=== PATIENT | female | born 1965 | race Caucasian/White ===

== ENCOUNTER 2018-06-07 07:05 | Inpatient (IN) ==
[2018-06-07] MEDS ORDERED: *HR* Midazolam HCl 2 MG/2 ML VIAL ONE ×2 (07:11→11:25)
[2018-06-07] MEDS ORDERED: *HR* Propofol 200 MG/20 ML VIAL IVP ONE (07:11)
[2018-06-07] MEDS ORDERED: *HR* FentaNYL (PF) 100 MCG/2 ML VIAL ONE ×2 (07:11→09:20)
[2018-06-07] MEDS ORDERED: cefOXitin 2,000 MG in Water for inj. (sterile) 20 ML 20 ML IVP ONE (07:33)
--- NOTE | 2018-06-07 07:42 | Anesthesia Evaluation PreOp ---
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 HX Other Medical History: GERD, Other (depression, panic attacks) Anesthesia History: No Prior Anesthetic Complications, Past Anesthesia Alcohol Use: none Drug use: none Medications and Allergies Acyclovir [Zovirax] 800 mg PO 5XD #25 tablet 12/11/17 [Rx] Atenolol [Tenormin] 50 mg PO DAILY 12/11/17 [History] HydrOXYzine 0.125 mg SL PRN PRN 12/11/17 [History] Hyoscyamine 0.375 mg PO DAILY 12/11/17 [History] Naratriptan HCl [Amerge] 2.5 mg PO DAILY 12/11/17 [History] Omeprazole 40 mg PO DAILY 12/11/17 [History] Venlafaxine HCl [Venlafaxine HCl ER] 150 mg PO DAILY 12/11/17 [History] buPROPion HCl [Bupropion HCl ER] 400 mg PO DAILY 12/11/17 [History] predniSONE [PredniSONE] See Taper PO DAILY #18 tablet 12/11/17 [Rx] Albuterol Sulfate [Proair Hfa] 1 puff IH PRN PRN 06/07/18 [History] Calcium Carbonate/Vitamin D3 [Calcium 500 mg Chewable Tablet] 1 each PO BID [History] Multivit-Min/Iron Fum/Folic AC [Tobpt-Sddjcyl-Jzoagvxe Tablet] 1 each PO DAILY 06/07/18 [History] Psyllium Husk [Fiber] 625 gm PO DAILY 06/07/18 [History] 3 Allergy/AdvReac Type Severity Reaction Status Date / Time atropine [From ] Allergy Hives Verified 06/07/18 07:45 Hyoscyamine [From ] Allergy Hives Verified 06/07/18 07:45 phenobarbital [From ] Allergy Hives Verified 06/07/18 07:45 scopolamine [From ] Allergy Hives Verified 06/07/18 07:45 - Meds/Allergy Pre-op Review Medications Reviewed: Yes Allergies Reviewed: Yes Beta Blockers on Current Med List: Yes If Beta Blockers taken, Date/Time (Last Dose taken): 06/07/2018 at 0600 Anesthesia Results - Labs Laboratory Tests 05/21/18 06/01/18 06/01/18 15:57 11:51 11:51 WBC 4.6 Hgb 12.7 Hct 37.5 Plt Count 281 PT 11.6 INR 1.0 APTT 34.4 Sodium 141 Potassium 4.1 BUN 17 Creatinine 1.00 Anesthesia Exam O2 Sat Height 1.63 m Height 1.63 m Height 1.63 m Weight 66.224 kg Weight 66.224 kg Weight 66.224 kg O2 Sat by Pulse Oximetry 92 Vital Signs Temp Pulse Resp BP Pulse Ox 98.5 F 78 18 123/86 92 06/07/18 07:49 06/07/18 07:49 06/07/18 07:49 06/07/18 07:49 06/07/18 07:49 Height: 5'4'' Weight: 146 lbs NPO (# of Hours): 8 Pain Scale: 0 Pain Scale Used: Numeric (1 - 10) - HEENT Pupil (Motor): EOMI Mallampati: II Teeth: Normal Oral Opening: Greater than 3 - 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
[2018-06-07] MEDS ORDERED: Ringers Solution, Lactated 1,000 ML IVC SCH (07:45)
--- NOTE | 2018-06-07 08:22 | History & Physical Report ---
Date of Encounter: 06/07/18 Time of Encounter: 08:21 24 Hour HP Update - Instructions Instructions: If the History and Physical is less than 30 days old and was completed prior to A.M. admission and or procedure and has NOT been updated on calendar day of procedure please complete this update prior to performing procedure. - Update Patient reports changes in Medical Condition: No Changes in examination, assessment, or condition: No Changes in Medication: No Preop tests/diagnostics Reviewed: Yes Surgery Remains Indicated: Yes Consent for Planned Operative Procedure(s) Verified: Yes - Pre-Operative Checklist Preoperative Checklist Indicated: Yes Prophylactic Antibiotic Ordered: Yes Home Medications Include Beta Aggie: No
[2018-06-07] MEDS ORDERED: EPHEDrine 50 MG/ML VIAL ONE (09:49)
[2018-06-07] MEDS ORDERED: *HR* PHENYLEPHRINE 1,000 MCG/10 ML SYRINGE IVP ONE (10:14)
[2018-06-07] MEDS ORDERED: *HR* HYDROmorphone (PF) 1 MG/ML SYRINGE ONE ×2 (10:29→11:24)
[2018-06-07] MEDS ORDERED: Acetaminophen IV 1,000 MG/100 ML INFUS..BTL ONE (10:30)
[2018-06-07] MEDS ORDERED: Ketorolac 30 MG/ML VIAL ONE (10:51)
[2018-06-07] MEDS ORDERED: *HR* HYDROmorphone (PF) 1 MG/ML SYRINGE IVP PRN (10:56)
[2018-06-07] MEDS ORDERED: *HR* Promethazine 25 MG/ML VIAL IVP PRN (10:56)
[2018-06-07] MEDS ORDERED: *HR* OxyCODONE Immed Rel 5 MG TABLET PO PRN (10:56)
[2018-06-07] MEDS ORDERED: *HR* Rocuronium Bromide 50 MG/5 ML VIAL ONE (11:02)
[2018-06-07] MEDS ORDERED: Neostigmine Methylsulfate 3 MG/3 ML SYRINGE ONE (11:02)
[2018-06-07] MEDS ORDERED: Lidocaine -MPF 2% 2 ML VIAL ONE (11:02)
[2018-06-07] MEDS ORDERED: Dexamethasone 4 MG/ML VIAL ONE (11:02)
[2018-06-07] MEDS ORDERED: Ondansetron 4 MG/2 ML VIAL ONE (11:02)
--- NOTE | 2018-06-07 11:16 | Operative Note ---
Date of procedure: 06/07/18 Pre-op diagnosis: Colon mass Post-op diagnosis: same Procedure: Robotic sigmoid resection with 33 mm EEA stapling Anesthesia: RENETTA Surgeon: Adam Randall Was there an behavioral health assistant present: Yes Stamp Redemption Clerk: Silvia Breen Estimated blood loss (cc): 5 Specimen: Sigmoid colon Condition: stable Disposition: same day Procedure in Detail: After informed consent, patient taken operating room placed supine position. After adequate sedation anesthesia patient was placed in a lithotomy position. After proper timeout a 12 mm cannula site was placed right superior to the umbilicus. Pneumoperitoneum was greater. A 13 mm cannula was placed in right lower quadrant. 5 mm camera was placed in the right upper quadrant. An 8 mm cannula was placed in subxiphoid region followed by another 8 mm in the left lower quadrant. Patient was placed in a headdown position. The robot was docked over the patient's left hip. Small bowel swept out of the pelvis. Rectosigmoid colon was then grasped and retracted cephalad. The peritoneum was then scored level of the sacral promontory. The left ureter was identified and kept on harm's way. The inferior mesenteric artery was then taken with a vessel sealer. The lateral rectosigmoid stalks were taken down the vessel sealer. The dissection was carried out down to approximate 4 cm above the pelvic floor. Rectosigmoid colon was dissected free from the retro-pubic tubercle region. Once it was freed a 45 mm robotic Endo staplers fired across the rectum. Once it was retracted and area was demarcated on the sigmoid colon for transection. Indocyanine green was infused and we had excellent perfusion. The splenic flexure was also taken down and mobilized. This mobilization allowed for less tension on the anastomosis. A counterincision was made in the suprapubic region. Dissection carried down the anterior rectus sheath. The rectus muscles were then divided in the midline with Elvira clamp. Once they were split the rectosigmoid colon was delivered. Lilo bowel clamps are used to place across the colon proximal and distal and transected. Allis clamps are placed on the bowel and then a pursestring suture device placed on the colon. 3-0 Prolene suture was passed. A pursestring sutures and created and a 33 mm EEA anvil was placed. Suture was tied and secured. Colon was then placed back in the pelvis. The stapler was passed through the anal canal and to the rectal stump and then the spear was placed through the staple line. The anvil was then connected secured and fired. There were 2 excellent donuts. There were several 2-0 silk sutures used to buttress the staple line. A leak test revealed no leak. At that point the procedure was terminated. All incisions are closed with 0 Vicryl suture and 4-0 Vicryl suture. Marcaine was inserted in the Pfannenstiel incision. She tolerated the procedure well.
--- NOTE | 2018-06-07 12:11 | Anesthesia Evaluation Post Op ---
Date of Encounter: 06/07/18 Time of Encounter: 12:09 - Vital Signs Vital Signs: Vital Signs/O2 Sat, Most Current Temp Pulse Resp BP Pulse Ox 98.2 F 87 18 103/69 99 06/07/18 12:08 06/07/18 12:08 06/07/18 12:08 06/07/18 12:08 06/07/18 12:08 - Lungs Lungs: Clear Ascult./Percussion - Airway Airway: Non-obstructed - Cardiovascular Regular Rate - Mental Status Mental Status: Asleep with brisk response to light stimulation - Pain Pain Scale: 2 Pain Scale used: Numeric (1 - 10) - Nausea Vomiting Nausea Vomiting: Not Present - Hydration Hydration: NPO, Figueredo catheter - Discharge PostOp Status: Transfer Patient to floor
[2018-06-07] MEDS ORDERED: Naloxone 0.4 MG/ML INJ IVP PRN (13:18)
[2018-06-07] MEDS ORDERED: Ondansetron 4 MG/2 ML VIAL IVP PRN (13:18)
[2018-06-07] MEDS ORDERED: ACYCLOVIR 800 MG PO SCH (13:18)
[2018-06-07] MEDS ORDERED: OXYCODONE Oral CONC 10 MG/0.5 ML ORAL.SYG SL PRN (13:18)
[2018-06-07] MEDS: Ketorolac 15 MG/ML VIAL IVP SCH ×2 (16:29→16:31)
[2018-06-08] MEDS: Ketorolac 15 MG/ML VIAL IVP SCH ×4 (00:23→17:14)
[2018-06-08 03:35] LABS: Basophils % 0.1 %; Hematocrit 38.5 % (35.3-44.9); Immature Granulocytes % 0.5 % (0-4); Lymphocytes # 0.7 K/mcL (0.6-4.6); Lymphocytes % 6.5 %; Mean Corpuscular HGB Conc 33.8 g/dL (31.6-35.5); Mean Corpuscular Hemoglobin 30.9 pg (28.0-33.3); Mean Corpuscular Volume 91.4 fL (83.0-100.0); Mean Platelet Volume 9.5 fL (9.4-12.4); Monocytes # 0.6 K/mcL (0.0-1.3); Monocytes % 5.8 %; Platelet Count 307 K/mcL (140-400); Red Blood Count 4.21 M/mcL (3.82-4.97); Red Cell Distribution Width 13.7 % (11.5-14.5); Segmented Neutrophils % 87.1 %
[2018-06-08 06:11] LABS: BUN/Creatinine Ratio 23 (6-26); Blood Urea Nitrogen 21 mg/dL (6-20); Calcium 8.5 mg/dL (8.6-10.3); Carbon Dioxide 15 mEq/L (23-29); Chloride 115 mEq/L (98-107); Glucose 124 mg/dL (70-105); Osmolality,Calculated 290 (280-300); Potassium 5.6 mEq/L (3.5-5.1); Sodium 138 mEq/L (136-145); eGFR For Non-African Americans > 60 (> 60)
--- NOTE | 2018-06-08 10:03 | General Surgery Progress Note ---
Date of Encounter: 06/08/18 Time of Encounter: 10:01 - Assessment and Plan (1) Colonic mass Current Visit: Yes Status: Acute POD #1 robotic sigmoid resection with Dr. Randall 06/07/2018 Patient doing well post-surgically, mild-moderate pain. Tolerating diet Plan: Continue supportive care and discomfort management full liquid diet, advance as tolerated ambulate TID with assistance Incentive spirometry 10 times per hour while awake (2) DVT prophylaxis Current Visit: Yes Status: Acute EPCDs Ambulation TID Subjective Patient reports: no new complaints, tolerating liquids well, voiding w/o difficulty, no flatus, no bowel movement, afebrile Narrative: Patient was seen and evaluated this morning at the bedside. She is in good spirits. Complains of some abdominal pain, that is moderate in severity. She has not asked for pain medications yet, and I informed her that they are available if she needs. Reports she did not eat much for breakfast because she found the clear liquid foods unappetizing. Has drank some juice and water. Denies nausea or vomiting. Denies passing flatus or bowel movement. Objective Vital Signs - Last 8 Hours Temp Pulse Resp BP Pulse Ox 06/08/18 08:10 98.3 F 78 16 116/63 93 06/08/18 05:46 98.5 F 70 18 131/82 95 Intake and Output 06/07/18 06/08/18 06/08/18 23:59 07:59 15:59 Intake Total 480 / 480 Output Total 0 / 0 Balance 480 / 480 0 / 0 Intake: Oral 480 / 480 Output: Urine 0 / 0 - General physical appearance no distress, moderate pain - Eyes PERRL - ENT atraumatic, normocephalic - Neck Neck exam: trachea midline - Respiratory clear to auscultation - Cardiovascular Cardiovascular exam: Present: RRR, no murmurs/rubs/gallops - Abdomen Abdomen: Present: bowel sounds present, soft, tender (Postsurgical tenderness). Absent: distended, guarding - Incision Incision: Present: clean and dry, intact - Integumentary no rash - Neurologic CN 2-12 grossly intact - Psychiatric oriented to time, oriented to person, oriented to place, speech is normal - Labs 06/08/18 03:17 06/08/18 03:17 Diabetes panel 06/08/18 Range/Units 03:17 Sodium 138 (136-145) mEq/L Potassium 5.6 H (3.5-5.1) mEq/L Chloride 115 H (98-107) mEq/L Carbon Dioxide 15 L (23-29) mEq/L BUN 21 H (6-20) mg/dL Creatinine 0.90 (0.60-1.20) mg/dL Glucose 124 H (70-105) mg/dL Calcium 8.5 L (8.6-10.3) mg/dL Calcium panel 06/08/18 Range/Units 03:17 Calcium 8.5 L (8.6-10.3) mg/dL Pituitary panel 06/08/18 Range/Units 03:17 Sodium 138 (136-145) mEq/L Potassium 5.6 H (3.5-5.1) mEq/L Chloride 115 H (98-107) mEq/L Carbon Dioxide 15 L (23-29) mEq/L BUN 21 H (6-20) mg/dL Creatinine 0.90 (0.60-1.20) mg/dL Glucose 124 H (70-105) mg/dL Calcium 8.5 L (8.6-10.3) mg/dL Adrenal panel 06/08/18 Range/Units 03:17 Sodium 138 (136-145) mEq/L Potassium 5.6 H (3.5-5.1) mEq/L Chloride 115 H (98-107) mEq/L Carbon Dioxide 15 L (23-29) mEq/L BUN 21 H (6-20) mg/dL Creatinine 0.90 (0.60-1.20) mg/dL Glucose 124 H (70-105) mg/dL Calcium 8.5 L (8.6-10.3) mg/dL - VTE Documentation of Mechanical Device: Intermittent pneumatic compression device Consult Discharge Plan - Plan Referrals: Kelly Norris DO [Primary Care Provider] -
[2018-06-09] MEDS: Ketorolac 15 MG/ML VIAL IVP SCH ×3 (00:02→11:47)
[2018-06-09 07:19] LABS: BUN/Creatinine Ratio 19 (6-26); Blood Urea Nitrogen 16 mg/dL (6-20); Calcium 8.1 mg/dL (8.6-10.3); Carbon Dioxide 26 mEq/L (23-29); Chloride 109 mEq/L (98-107); Glucose 88 mg/dL (70-105); Osmolality,Calculated 293 (280-300); Potassium 3.6 mEq/L (3.5-5.1); Sodium 141 mEq/L (136-145); eGFR For Non-African Americans > 60 (> 60)
--- NOTE | 2018-06-09 10:02 | Discharge Summary ---
<Ambrose Duran - Last Filed: 06/09/18 09:59> Orders not resulted at time of discharge: Pending orders 06/07/18 11:29 Surgical Pathology [PTH] Routine Date of Encounter: 06/09/18 Time of Encounter: 08:00 - Discharge Diagnosis (1) Status post colectomy Priority: Primary Status: Acute (2) Colonic mass Priority: Primary Status: Acute General Surgery Exam Initial Vital Signs Temp Pulse Resp BP Pulse Ox 98.5 F 78 18 123/86 92 06/07/18 07:49 06/07/18 07:49 06/07/18 07:49 06/07/18 07:49 06/07/18 07:49 - General physical appearance well nourished, no distress, no pain - Eyes PERRL, normal ocular movement - ENT atraumatic, normocephalic - Neck trachea midline - Respiratory normal expansion, clear to auscultation - Cardiovascular Cardiovascular exam: Present: RRR - Abdomen Abdomen general surgery: Present: bowel sounds present, soft, tender (post surgical tenderness). Absent: guarding, rebound - Incision Incision: Present: clean and dry, intact, approximated - Integumentary Integumentary general surgery: Present: warm and dry - Neurologic Present: CN 2-12 grossly intact - Psychiatric Psychiatric general surgery: Present: A&Ox3, speech is normal - Hospital Course Hospital course: Ms. Santiago is a 53 year old female admitted to the hospital on 06/07/2018 for sigmoidectomy secondary to colonic mass. Patient was taken to the operating room on 06/07/[address] Randall, where she underwent robotic sigmoidectomy with EEA. Patient tolerated surgery well. Her diet has been advanced to regular. She is tolerating meals without nausea, vomiting, diarrhea. Bowel sounds are present. Patient is passing small blood clot as expected. Her pain has been well controlled. Incisions are intact, clean and dry. She is able to ambulate without assistance. Vital signs have remained stable and within normal limits, afebrile. Laboratory values within normal limits. Patient is progressing well and is ready for discharge with outpatient surgical follow up. - Time Spent with Patient Total time spent providing and/or coordinating discharge services: - Discharge Medications Prescriptions: OxyCODONE/APAP 5/325 [Percocet 5/325 MG] 1 each PO Q6HR PRN 7 Days #28 tablet PRN Reason: Breakthrough Pain Docusate [Colace] 100 mg PO BID #30 capsule Ibuprofen 800 mg PO Q8H PRN 14 Days #42 tablet PRN Reason: Pain Home Medications: Atenolol [Tenormin] 50 mg PO DAILY 12/11/17 [History] Hyoscyamine Sulfate [Hyoscyamine Sulfate ER] 0.1875 mg PO DAILY 12/11/17 [ History] Naratriptan HCl [Amerge] 2.5 mg PO DAILY PRN 12/11/17 [History] Omeprazole [PriLOSEC] 40 mg PO DAILY 12/11/17 [History] Venlafaxine HCl [Venlafaxine HCl ER] 150 mg PO DAILY 12/11/17 [History] buPROPion HCl [Bupropion HCl ER] 400 mg PO DAILY 12/11/17 [History] hydrOXYzine pamoate [HydrOXYzine Pamoate] 25 mg PO QID 12/11/17 [History] Albuterol Sulfate [Proair Hfa] 1 puff IH PRN PRN 06/07/18 [History] Calcium Carbonate/Vitamin D3 [Calcium 500 mg Chewable Tablet] 1 each PO BID [History] Multivit-Min/Iron Fum/Folic AC [Mmxuz-Cwevymk-Ewaakkhq Tablet] 1 each PO DAILY 06/07/18 [History] Psyllium Husk [Fiber] 625 gm PO DAILY 06/07/18 [History] Ascorbate Calcium [Vitamin C] 500 mg PO DAILY 06/08/18 [History] Hyoscyamine SL [Levsin SL] 0.125 mg SL TID PRN 06/08/18 [History] Docusate [Colace] 100 mg PO BID #30 capsule 06/09/18 [Rx] Ibuprofen 800 mg PO Q8H PRN 14 Days #42 tablet 06/09/18 [Rx] OxyCODONE/APAP 5/325 [Percocet 5/325 MG] 1 each PO Q6HR PRN 7 Days #28 tablet [Rx] Allergies/Adverse Reactions: 3 Allergy/AdvReac Type Severity Reaction Status Date / Time atropine [From ] Allergy Hives Verified 06/07/18 07:45 Hyoscyamine [From ] Allergy Hives Verified 06/07/18 07:45 phenobarbital [From ] Allergy Hives Verified 06/07/18 07:45 scopolamine [From ] Allergy Hives Verified 06/07/18 07:45 Date of admission: 06/07/18 13:06 Primary care physician: Kendrick Hall Discharging clinician: Ambrose Duran Anticipated date of discharge: 06/09/18 Labs on day of discharge: Labs from last 24 hours 06/09/18 06:34 Sodium 141 Potassium 3.6 Chloride 109 H Carbon Dioxide 26 BUN 16 Creatinine 0.84 Est GFR ( Amer) > 60 Est GFR (Non-Af Amer) > 60 BUN/Creatinine Ratio 19 Glucose 88 Calculated Osmolality 293 Calcium 8.1 L - Patient Status Disposition: Home, Self-Care Condition: Good Functional capacity at discharge: independent ambulation Overall status at discharge: patient is progressing back to baseline - Discharge Instructions Instructions: Colectomy (DC) Follow Up With: Kelly Norris DO [Primary Care Provider] - Adam Randall DO [Partnered Physician] - 06/26/18 Additional Instructions: General Surgical Discharge Instructions 1. No pushing, pulling, or lifting greater than 15 lbs for 2-4 weeks (depending upon procedure). 2. You may shower beginning today, but no tub baths, soaking, or swimming for 2 weeks. 3. You may resume driving when you are off narcotics and are safe to react in a car. 4. Take ibuprofen every 8 hours for discomfort. If this does not relieve discomfort, you may take the as needed Percocet. Take narcotics as directed. Do not take more narcotics then directed and do not share your narcotics with any other person. Do not drink alcohol while on narcotics. 5. Take stool softeners (Colace) or a water based laxative (Miralax) while taking narcotics. You may hold for loose stools. 6. Report any fevers greater than 100.5F, increase abdominal discomfort, drainage that looks like pus, increased redness or pain at the surgical site, or any vomiting. 7. Report any pain in the calves, shortness of breath, or rapid heartbeat. 8. Follow-up in the office as directed. 9. If you were prescribed antibiotics, do not stop them without talking to your provider. - Diet and Activity Activity: increase activity as tolerated Diet: advance to your usual diet <Jeancarlos Cordova - Last Filed: 06/09/18 15:51> Orders not resulted at time of discharge: Pending orders 06/07/18 11:29 Surgical Pathology [PTH] Routine Date of Encounter: 06/09/18 General Surgery Exam Initial Vital Signs Temp Pulse Resp BP Pulse Ox 98.5 F 78 18 123/86 92 06/07/18 07:49 06/07/18 07:49 06/07/18 07:49 06/07/18 07:49 06/07/18 07:49 - Hospital Course Hospital course: Ms. Santiago is a 53 year old female - Time Spent with Patient Total time spent providing and/or coordinating discharge services: Date of admission: 06/07/18 13:06 Primary care physician: Kendrick Hall Labs on day of discharge: Labs from last 24 hours 06/09/18 06:34 Sodium 141 Potassium 3.6 Chloride 109 H Carbon Dioxide 26 BUN 16 Creatinine 0.84 Est GFR ( Amer) > 60 Est GFR (Non-Af Amer) > 60 BUN/Creatinine Ratio 19 Glucose 88 Calculated Osmolality 293 Calcium 8.1 L - Attending Attestation I examined this patient and my medical decision-making was reviewed with the Resident Physician. I agree with the documented findings, disposition and treatment plan as described except to the extent set forth below. The patient is seen and evaluated on morning rounds with resident. The patient tolerated sigmoid colectomy very well and is passing gas. She has good bowel sounds. We will advance to regular diet. If she tolerates regular diet she can be discharged home. Follow-up appointment previously arranged. Jeancarlos Cordova MD FACS
[2018-06-09 10:08] VITALS: BP 127/73
== END 2018-06-09 12:08 | disposition home or self-care (01) | DRG 331 ==
LOC: SAMDAY 07:05 → 3ANU 13:06
PROVIDERS: ADMIT Surgery; ATTEND Surgery